=== PATIENT | male | born 1995 | race Caucasian/White ===

== ENCOUNTER 2022-10-14 17:53 | Emergency (ER) | payer OTHER ==
[~2022-10-14] VITALS: Ht 175.3 cm; Wt 86.2 kg
== END 2022-10-14 21:33 | disposition home or self-care (01) ==
LOC: ER 17:53
DX: R07.89 Other chest pain (principal)
CPT/HCPCS: 71046; 71110; 96372; 99283; J1885; J2360

== ENCOUNTER 2022-10-19 10:02 | Outpatient (CLI) | payer OTHER | END 2022-10-19 10:08 | disposition home or self-care (01) | LOC: TOM 10:02 | DX: R07.9 Chest pain, unspecified (principal) ==

== ENCOUNTER 2023-09-22 07:12 | Outpatient (CLI) | payer OTHER | END 2023-09-22 07:16 | disposition home or self-care (01) | LOC: RAD 07:12 | DX: Z13.83 Encounter for screening for respiratory disorder NEC (principal) ==